=== PATIENT | female | born 1970 | race Caucasian/White ===

== ENCOUNTER → 2017-05-05 | Outpatient (CLI) | payer MEDICARE | LOC: EMI 04-26 10:00 | DX: G35 Multiple sclerosis (principal) | CPT/HCPCS: 70553; A9577; J7050 ==

== ENCOUNTER → 2021-04-29 | Outpatient (CLI) | payer MEDICARE | LOC: EMI 09:49 | DX: G35 Multiple sclerosis (principal); M50.322 Other cervical disc degeneration at C5-C6 level | CPT/HCPCS: 70553; 72156; A9577 ==